=== PATIENT | female | born 1975 | race Caucasian/White ===

== ENCOUNTER 2020-07-03 04:56 | Observation (INO) | payer OTHER ==
--- NOTE | 2020-07-03 05:03 | ED Physician Documentation ---
PD HPI ABD PAIN - Stated complaint Stated Complaint: ABX PX - History obtained from History obtained from: Patient - History of Present Illness Timing - onset: How many hours ago (1) Timing - duration: Hours (1) Timing - details: Abrupt onset, Still present Quality: Cramping, Aching, Pain Location: RUQ, Epigastric Radiation: Upper back. No: Chest Improved by: Vomiting Worsened by: No: Palpation Associated symptoms: Nausea, Vomiting. No: Fever, Diarrhea, Constipation, Dysuria Similar symptoms before: Diagnosis (had a SBO 2007 that required surgery with resection 3 ft small intestine. 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 denies: Constipation, Diarrhea : denies: Dysuria Musculoskeletal: denies: Back pain Neurologic: denies: Near syncope PD PAST MEDICAL HISTORY - Past Medical History Cardiovascular: None Respiratory: None Neuro: None Endocrine/Autoimmune: None - Past Surgical History General: Other (partial small bowel resection due to SBO 2007) - Present Medications Home Medications: Ambulatory Orders Medication Instructions Recorded Confirmed No Known Home Medications 07/03/20 07/03/20 - Allergies Allergies/Adverse Reactions: Allergies Allergy/AdvReac Type Severity Reaction Status Date / Time No Known Drug Allergies Allergy Verified 07/03/20 05:08 - Living Situation Living Situation: reports: With family Living Arrangement: reports: At home PD ED PE NORMAL - Vitals Vital signs reviewed: Yes - General General: Alert and oriented X 3, Well developed/nourished, Other (appears in pain rhythmically, not continual) - HEENT HEENT: Pharynx benign - Neck Neck: Supple, no meningeal sign, No adenopathy - Cardiac Cardiac: RRR, No murmur - Respiratory Respiratory: Clear bilaterally - Abdomen Abdomen: Soft, Non distended, No organomegaly, Other (tender in upper ab d/epigastric area and some to RUQ. No percussion nor rebound tenderness. ) - Female Female : Deferred - Rectal Rectal: Deferred - Back Back: No CVA TTP - Derm Derm: Normal color, Warm and dry - Extremities Extremities: No edema, No calf tenderness / cord - Neuro Neuro: Alert and oriented X 3, No motor deficit, Normal speech Eye Opening: Spontaneous Motor: Obeys Commands Verbal: Oriented GCS Score: 15 Results - Vitals Vitals: Vital Signs - 24 hr 07/03/20 07/03/20 05:05 05:08 Temperature 36.4 C L 36.4 C L Heart Rate 95 95 Respiratory 18 18 Rate Blood Pressure 153/101 H 153/101 H O2 Saturation 100 100 Oxygen O2 Source Room air - Labs Labs: Laboratory Tests 07/03/20 07/03/20 07/03/20 05:09 05:22 05:22 WBC 11.4 H RBC 4.57 Hgb 15.0 Hct 42.5 MCV 93.0 MCH 32.8 H MCHC 35.3 RDW 11.9 L Plt Count 333 MPV 9.0 Neut # (Auto) 7.7 H Lymph # (Auto) 2.7 [place] # (Auto) 0.7 Eos # (Auto) 0.2 Baso # (Auto) 0.1 Absolute Nucleated RBC 0.00 Nucleated RBC % 0.0 Sodium 135 Potassium 3.7 Chloride 103 Carbon Dioxide 22 Anion Gap 10.0 BUN 15 Creatinine 0.7 Estimated GFR (MDRD) 91 Glucose 108 H Calcium 9.2 Total Bilirubin 0.5 AST 24 ALT 29 Alkaline Phosphatase 40 L Total Protein 7.5 Albumin 4.4 Globulin 3.1 Albumin/Globulin Ratio 1.4 Lipase 30 Urine Color YELLOW Urine Clarity CLEAR Urine pH 5.0 Ur Specific [place] >=1.030 H Urine Protein NEGATIVE Urine Glucose (UA) NEGATIVE Urine Ketones TRACE Urine Occult Blood LARGE H Urine Nitrite NEGATIVE Urine Bilirubin NEGATIVE Urine Urobilinogen 0.2 (NORMAL) Ur Leukocyte Esterase NEGATIVE Urine RBC 11-25 H Urine WBC 0-3 Ur Squamous Epith Cells FEW Squamous Urine Bacteria Few Ur Microscopic Review INDICATED Urine Culture Comments NOT INDICATED Urine HCG, Qual NEGATIVE - Rads (name of study) abd CT Radiology: Prelim report reviewed (Dilated mid small bowel up to 6 cm with contrast above consistent with partial small bowel obstruction), See rad report PD MEDICAL DECISION MAKING - ED course Complexity details: reviewed results (The radiology report is consistent with the partial small bowel obstruction in the mid small bowel. No other acute process.), considered differential (consider SBO/adhesions versus gallbladder or pancreatic process, given the upper abd location. ), d/w patient, d/w account consultant (Talked with Dr. Campos on-call for general surgery. She is close to the hospital and will actually just come to the ER to see the patient.) Departure - Departure Disposition: ED Place in Observation Clinical Impression: Acute upper abdominal pain, Small bowel obstruction Condition: Stable Record reviewed to determine appropriate education?: Yes
[2020-07-03] MEDS ORDERED: SODIUM CHLORIDE 0.9% 1,000 ML IV STA (05:12)
[2020-07-03] MEDS ORDERED: KETOROLAC 15 MG/ML VIAL IVP STA (05:12)
[2020-07-03] MEDS ORDERED: HYDROmorphone 1 MG/ML CARPUJECT IVP STA ×2 (05:12→08:53)
[2020-07-03] MEDS ORDERED: ONDANSETRON 4 MG/2 ML VIAL IVP STA (05:12)
[2020-07-03 05:22] LABS: BILIRUBIN,URINE NEGATIVE (NEGATIVE); GLUCOSE, URINE (UA) NEGATIVE (NEGATIVE); KETONES,URINE (UA) TRACE mg/dL (NEGATIVE); LEUKOCYTE ESTERASE, URINE NEGATIVE (NEGATIVE); NITRITE,URINE NEGATIVE (NEGATIVE); OCCULT BLOOD,URINE LARGE (NEGATIVE); PROTEIN,URINE NEGATIVE (NEGATIVE); UROBILINOGEN,URINE 0.2 (NORMAL) E.U./dL (NORMAL)
[2020-07-03] MEDS ORDERED: IOVERSOL 320 100 ML VIAL IVP ONE ×2 (05:24→06:31)
[2020-07-03] MEDS ORDERED: IOVERSOL 320 50 ML VIAL ONE (05:25)
[2020-07-03 05:29] LABS: BASOPHILS # (AUTO) 0.1 10^3/uL (0.0-0.1); BASOPHILS % (AUTO) 0.5 %; EOSINOPHILS # (AUTO) 0.2 10^3/uL (0.0-0.7); EOSINOPHILS % (AUTO) 1.8 %; LYMPHOCYTES # (AUTO) 2.7 10^3/uL (1.5-3.5); LYMPHOCYTES % (AUTO) 23.3 %; MEAN CORPUSCULAR HEMOGLOBIN 32.8 pg (27.0-31.0); MEAN CORPUSCULAR HGB CONC 35.3 g/dL (32.0-36.0); MONOCYTES # (AUTO) 0.7 10^3/uL (0.0-1.0); MONOCYTES % (AUTO) 6.5 %; NEUTROPHILS # (AUTO) 7.7 10^3/uL (1.5-6.6); NEUTROPHILS % (AUTO) 67.5 %; PLT - PLATELET COUNT 333 10^3/uL (130-450); RED BLOOD COUNT 4.57 10^6/uL (4.20-5.40); RED CELL DISTRIBUTION WIDTH 11.9 % (12.0-15.0); WHITE BLOOD COUNT 11.4 x10^3/uL (4.8-10.8)
[2020-07-03 05:31] LABS: BACTERIA,URINE Few /HPF (None Seen); CLARITY,URINE CLEAR (CLEAR); HCG UR QUAL NEGATIVE; SQUAMOUS EPITHELIAL CELL,UR FEW Squamous (<= Few)
[2020-07-03 05:41] LABS: ALBUMIN 4.4 g/dL (3.2-5.5); ALBUMIN/GLOBULIN RATIO 1.4 (1.0-2.2); BILIRUBIN,TOTAL 0.5 mg/dL (0.2-1.0); CALCIUM 9.2 mg/dL (8.5-10.3); CREATININE 0.7 mg/dL (0.4-1.0); TOTAL PROTEIN 7.5 g/dL (6.7-8.2)
[2020-07-03] MEDS ORDERED: LACTATED RINGERS 1,000 ML IV STA (08:21)
--- NOTE | 2020-07-03 08:25 | CT Report ---
PROCEDURE: Abdomen/Pelvis W INDICATIONS: Abdominal pain, acute, upper abd CONTRAST: IV CONTRAST: Optiray 320 ml: 100 PO CONTRAST: Optiray 320 ml50 TECHNIQUE: After the administration of intravenous contrast, 5 mm thick sections acquired from the diaphragms to the symphysis. 5 mm thick coronal and sagittal reformats were acquired. For radiation dose reducti on, the following was used: automated exposure control, adjustment of mA and/or kV according to estefania ent size. COMPARISON: None. FINDINGS: Image quality: Excellent. ABDOMEN: Lung bases: Lung bases are clear. Heart size is normal. Solid organs: Liver and spleen are normal in size and enhancement. Gallbladder is unremarkable ther e is mild dilatation of the extrahepatic duct down to the level of the pancreas and mild central intr ahepatic biliary ductal dilatation. There is no pancreatic head mass noted. No common duct stone iden tified. Pancreas enhances normally. Mildly dilated pancreatic duct. No adrenal nodules. Kidneys demo nstrate normal size and enhancement, without hydronephrosis. Peritoneum and bowel: There are partial colectomy clips present in the region of the hepatic flexure. There is a dilated loop of bowel containing a large amount of stool at the anastomotic site. This is either the most proximal residual colon or ileum. This results in a mild small bowel obstruction. Th ere is a large amount of fecal debris in the colon. Nodes and vessels: No retroperitoneal or mesenteric adenopathy by size criteria. Aorta and inferior vena cava are normal in size. Miscellaneous: No ventral hernias. PELVIS: Genitourinary: Bladder wall thickness is normal. Miscellaneous: No inguinal hernias or adenopathy. Cystic right adnexa. Bones: No suspicious bony lesions. No vertebral body compression fractures. IMPRESSION: 1. Remote partial right colectomy. 2. A 6 cm diameter stool-containing structure in the region of the hepatic flexure either represents constipated residual right colon or chronically dilated terminal ileum. There is a mild small bowel o bstruction proximal to this segment. 3. Mild biliary ductal dilatation and pancreatic ductal dilatation. Comment: MRCP may be helpful to evaluate for the presence or absence of a common duct stone. A preliminary report with the above findings was provided at the time of the study by [facility]. Reviewed by: Cornelius Alejandro MD on 07/03/2020 8:23 AM PDT Approved by: Cornelius Alejandro MD on 07/03/2020 8:23 AM PDT Station ID: [id number]
[2020-07-03] MEDS ORDERED: HYDROmorphone 0.5 MG/0.5 ML SYRINGE IVP PRN (09:16)
[2020-07-03] MEDS ORDERED: LORazepam 2 MG/ML VIAL IVP PRN (09:16)
[2020-07-03] MEDS ORDERED: ONDANSETRON 4 MG/2 ML VIAL IVP PRN (09:16)
[2020-07-03] MEDS ORDERED: SODIUM CHLORIDE FLUSH 0.9% 10 ML SYRINGE IVP PRN (09:16)
[2020-07-03] MEDS ORDERED: LACTATED RINGERS 1,000 ML IV SCH (10:00)
[2020-07-03] MEDS ORDERED: PANTOPRAZOLE 40 MG VIAL IVP SCH (10:00)
--- NOTE | 2020-07-03 12:18 | PHARMACY PROGRESS NOTE ---
- Best Possible Medication History Admit Date and Time: 07/03/20 0916 Processed by: Nursing Medication History completed: Yes As the person ultimately responsible for medication therapy, providers are able to order a medication from an existing home medication list in [facility] via the "Reconcile Routine" prior to Confirmation of that medication by direct support worker. Such practice is discouraged except when the physician, in their clinical judgment, deems that a medical need exists for a medication without regard to previous use.
[2020-07-03] MEDS: ACETAMINOPHEN 1,000 MG/100 ML 100 ML IV SCH ×2 (12:29→16:02)
--- NOTE | 2020-07-03 12:39 | HISTORY & PHYSICAL EXAMINATION ---
Chief Complaint - Chief Complaint Chief Complaint: Abdominal pain with nausea Abdominal Pain HPI - Admitted From Admitted from: ED - History Obtained From Records Reviewed: RN notes reviewed, Other (Physician documentation) History obtained from: Patient, Family Exam limitations: No limitations - History of Present Illness Severity at the worst: Severe Pain Quality: Sharp, Cramping Context-Pain started w/: Rest Timing: Intermittent Duration: Hours: Improved with: Nothing Worsened by: Nothing Associated symptoms: Nausea HPI Comment/Other: Geetha reports she has these symptoms about every 2 years since her last operation. Usually, she is able to drink liquids at home and the issue will resolve without treatment. This time, the symptoms were more severe and did not improve with rest. She remembers the surgeon at the last episode used something to try to prevent additional adhesions but she does not recall the name. PMH/PSH - Past Medical History Cardiovascular: positive: None Respiratory: positive: None Neuro: positive: None Endocrine/Autoimmune: positive: None GI: positive: Other Other Past Medical History: GI obstruction - Past Surgical History General: positive: Appendectomy, Bowel surgery (As a child and then again in 2011. ), Other /[employer]: positive: Oophrectomy Social & Family Hx - Living Situation Living Arrangement: At home Living Situation: With family - Social History Does the pt smoke?: No Smoking Status: Never smoker Does the pt drink ETOH?: Yes ETOH Use: Wine Substance Use and Type: Marijuana Meds/Allgy - Home Medications Home Medications: Ambulatory Orders Medication Instructions Recorded Confirmed No Known Home Medications 07/03/20 07/03/20 - Allergies Allergies/Adverse Reactions: Allergies Allergy/AdvReac Type Severity Reaction Status Date / Time No Known Drug Allergies Allergy Verified 07/03/20 05:08 Review of Systems - Gastrointestinal Gastrointestinal: reports: Abdominal pain, Nausea - All Other Systems All Other Systems: reports: Reviewed and negative Exam - Vital Signs Reviewed Vital Signs: Yes Vital Signs: Vital Signs x48h Temp Pulse Pulse Resp BP BP Pulse Ox 07/03/20 09:47 36.6 C 67 17 127/87 H 98 07/03/20 09:11 78 18 133/84 H 97 07/03/20 07:33 79 18 127/88 H 100 07/03/20 05:08 36.4 C L 95 18 153/101 H 100 07/03/20 05:05 36.4 C L 95 18 153/101 H 100 - Physical Exam General Appearance: positive: Moderate distress Eyes Bilateral: positive: Normal inspection, PERRL, EOMI ENT: positive: ENT inspection nml, Pharynx nml, No signs of dehydration Neck: positive: Nml inspection, Thyroid nml, No JVD, Trachea midline. negative: Lymphadenopathy (R), Lymphadenopathy (L) Respiratory: positive: Chest non-tender, No respiratory distress, Breath sounds nml Cardiovascular: positive: Regular rate & rhythm, No murmur Peripheral Pulses: positive: 1+ Abdomen: positive: No distention, Tenderness, Other (globally tender to palpation, healed midline and transverse incisions without defect. Slightly more tender directly under the incision.). negative: Mass Back: positive: Nml inspection. negative: CVA tenderness (R), CVA tenderness (L) Skin: positive: Color nml Extremities: positive: Full ROM Neurologic/Psychiatric: positive: Oriented x3 Results - Lab Results Fish Bones: 07/03/20 05:22 07/03/20 05:22 Other Lab Results: Lab Results x24hrs 07/03/20 07/03/20 07/03/20 Range/Units 05:22 05:22 05:09 WBC 11.4 H (4.8-10.8) x10^3/uL RBC 4.57 (4.20-5.40) 10^6/uL Hgb 15.0 (12.0-16.0) g/dL Hct 42.5 (37.0-47.0) % MCV 93.0 (81.0-99.0) fL MCH 32.8 H (27.0-31.0) pg MCHC 35.3 (32.0-36.0) g/dL RDW 11.9 L (12.0-15.0) % Plt Count 333 (130-450) 10^3/uL MPV 9.0 (7.9-10.8) fL Neut # (Auto) 7.7 H (1.5-6.6) 10^3/uL Lymph # (Auto) 2.7 (1.5-3.5) 10^3/uL [place] # (Auto) 0.7 (0.0-1.0) 10^3/uL Eos # (Auto) 0.2 (0.0-0.7) 10^3/uL Baso # (Auto) 0.1 (0.0-0.1) 10^3/uL Absolute Nucleated RBC 0.00 x10^3/uL Nucleated RBC % 0.0 /100WBC Sodium 135 (135-145) mmol/L Potassium 3.7 (3.5-5.0) mmol/L Chloride 103 (101-111) mmol/L Carbon Dioxide 22 (21-32) mmol/L Anion Gap 10.0 (6-13) BUN 15 (6-20) mg/dL Creatinine 0.7 (0.4-1.0) mg/dL Estimated GFR (MDRD) 91 (>89) Glucose 108 H (70-100) mg/dL Calcium 9.2 (8.5-10.3) mg/dL Total Bilirubin 0.5 (0.2-1.0) mg/dL AST 24 (10-42) IU/L ALT 29 (10-60) IU/L Alkaline Phosphatase 40 L (42-121) IU/L Total Protein 7.5 (6.7-8.2) g/dL Albumin 4.4 (3.2-5.5) g/dL Globulin 3.1 (2.1-4.2) g/dL Albumin/Globulin Ratio 1.4 (1.0-2.2) Lipase 30 (22-51) U/L Urine Color YELLOW Urine Clarity CLEAR (CLEAR) Urine pH 5.0 (5.0-7.5) PH Ur Specific [place] >=1.030 H (1.002-1.030) Urine Protein NEGATIVE (NEGATIVE) mg/dL Urine Glucose (UA) NEGATIVE (NEGATIVE) mg/dL Urine Ketones TRACE (NEGATIVE) mg/dL Urine Occult Blood LARGE H (NEGATIVE) Urine Nitrite NEGATIVE (NEGATIVE) Urine Bilirubin NEGATIVE (NEGATIVE) Urine Urobilinogen 0.2 (NORMAL) (NORMAL) E.U./dL Ur Leukocyte Esterase NEGATIVE (NEGATIVE) Urine RBC 11-25 H (0-5) /HPF Urine WBC 0-3 (0-5) /HPF Ur Squamous Epith Cells FEW Squamous (<= Few) Urine Bacteria Few (None Seen) /HPF Ur Microscopic Review INDICATED Urine Culture Comments NOT INDICATED Urine HCG, Qual NEGATIVE - Diagnostic Imaging Results Diagnostic Imaging Results: positive: Final report reviewed Diagnostic Imaging Results Comments: 6cm stool filled structure at the hepatic flexure consistent with either terminal ileum or residual right colon. Mild dilation of the small bowel loops proximal to this area. Impression/Plan - Problem List Problem List: Possible partial small bowel obstruction vs obstipation. Symptoms are recurrent We discussed the possibility of surgical intervention vs watchful waiting. There is no evidence of bowel ischemia. We will start with bowel rest and consider therapeutic gastrograffin. Plan xray in the AM.
[2020-07-03] MEDS ORDERED: DIATR MEGLU/DIATRIZOATE SODIUM 120 ML BOTTLE PO ONE (12:47)
[2020-07-03] MEDS ORDERED: DIATRIZOATE MEGLU/DIATRIZO SOD 30 ML BOTTLE PO ONE (14:00)
[2020-07-03] MEDS ORDERED: SODIUM CHLORIDE FLUSH 0.9% 10 ML SYRINGE IVP SCH (17:00)
[2020-07-03 18:05] VITALS: BP 123/73
--- NOTE | 2020-07-03 18:13 | PROVIDER PROGRESS NOTE ---
Subjective - Prog Note Date Prog Note Date: 07/03/20 Prog Note Time: 18:11 - Subjective Pt reports feeling: Improved Subjective: Geetha reports feeling much better. She has had 2 bowel movements and her pain has completely resolved. She is hungry and feels comfortable going home. Her is here with her to escort her. Abdomen is soft and completely nontender now with active bowel sounds A/P: Discharge to home. Follow up as needed. Objective - Vital Signs/Intake & Output Vital Signs: Vital Signs x48h Temp Pulse Pulse Resp BP Pulse Ox 07/03/20 18:00 36.3 C L 70 18 123/73 96 07/03/20 15:21 36.6 C 67 20 100 07/03/20 13:47 36.6 C 65 20 130/71 100 Intake & Output: Intake & Output 06/30/20 07/01/20 07/02/20 07/03/20 23:59 23:59 23:59 23:59 Intake Total 2200.000 Balance 2200.000 - Lab Results Fish Bones: 07/03/20 05:22 07/03/20 05:22 Other Labs: Lab Results x24hrs 07/03/20 07/03/20 07/03/20 Range/Units 05:22 05:22 05:09 WBC 11.4 H (4.8-10.8) x10^3/uL RBC 4.57 (4.20-5.40) 10^6/uL Hgb 15.0 (12.0-16.0) g/dL Hct 42.5 (37.0-47.0) % MCV 93.0 (81.0-99.0) fL MCH 32.8 H (27.0-31.0) pg MCHC 35.3 (32.0-36.0) g/dL RDW 11.9 L (12.0-15.0) % Plt Count 333 (130-450) 10^3/uL MPV 9.0 (7.9-10.8) fL Neut # (Auto) 7.7 H (1.5-6.6) 10^3/uL Lymph # (Auto) 2.7 (1.5-3.5) 10^3/uL [place] # (Auto) 0.7 (0.0-1.0) 10^3/uL Eos # (Auto) 0.2 (0.0-0.7) 10^3/uL Baso # (Auto) 0.1 (0.0-0.1) 10^3/uL Absolute Nucleated RBC 0.00 x10^3/uL Nucleated RBC % 0.0 /100WBC Sodium 135 (135-145) mmol/L Potassium 3.7 (3.5-5.0) mmol/L Chloride 103 (101-111) mmol/L Carbon Dioxide 22 (21-32) mmol/L Anion Gap 10.0 (6-13) BUN 15 (6-20) mg/dL Creatinine 0.7 (0.4-1.0) mg/dL Estimated GFR (MDRD) 91 (>89) Glucose 108 H (70-100) mg/dL Calcium 9.2 (8.5-10.3) mg/dL Total Bilirubin 0.5 (0.2-1.0) mg/dL AST 24 (10-42) IU/L ALT 29 (10-60) IU/L Alkaline Phosphatase 40 L (42-121) IU/L Total Protein 7.5 (6.7-8.2) g/dL Albumin 4.4 (3.2-5.5) g/dL Globulin 3.1 (2.1-4.2) g/dL Albumin/Globulin Ratio 1.4 (1.0-2.2) Lipase 30 (22-51) U/L Urine Color YELLOW Urine Clarity CLEAR (CLEAR) Urine pH 5.0 (5.0-7.5) PH Ur Specific [place] >=1.030 H (1.002-1.030) Urine Protein NEGATIVE (NEGATIVE) mg/dL Urine Glucose (UA) NEGATIVE (NEGATIVE) mg/dL Urine Ketones TRACE (NEGATIVE) mg/dL Urine Occult Blood LARGE H (NEGATIVE) Urine Nitrite NEGATIVE (NEGATIVE) Urine Bilirubin NEGATIVE (NEGATIVE) Urine Urobilinogen 0.2 (NORMAL) (NORMAL) E.U./dL Ur Leukocyte Esterase NEGATIVE (NEGATIVE) Urine RBC 11-25 H (0-5) /HPF Urine WBC 0-3 (0-5) /HPF Ur Squamous Epith Cells FEW Squamous (<= Few) Urine Bacteria Few (None Seen) /HPF Ur Microscopic Review INDICATED Urine Culture Comments NOT INDICATED Urine HCG, Qual NEGATIVE
--- NOTE | 2020-07-03 18:14 | DISCHARGE SUMMARY ---
Discharge Summary Admit Date: 07/03/20 Discharge Date: 07/03/20 Discharging Provider: Yanira Primary Care Provider: [facility] Code Status: Attempt Resuscitation Condition at Discharge: Good Discharge Disposition: 01 Home, Self Care - DIAGNOSES Admission Diagnoses: Small bowel obstruction Discharge Diagnoses with Status of Each Condition: Resolved - HPI History of Present Illness: Acute onset of abdominal pain with nausea and vomiting - HOSPITAL COURSE Hospital Course: Geetha was admitted for hydration and supportive care. She began to improve immediately and had 2 large bowel movements. Her pain resolved and she is ready for discharge. - ALLERGIES Allergies/Adverse Reactions: Allergies Allergy/AdvReac Type Severity Reaction Status Date / Time No Known Drug Allergies Allergy Verified 07/03/20 05:08 - MEDICATIONS Home Medications: Ambulatory Orders Medication Instructions Recorded Confirmed No Known Home Medications 07/03/20 07/03/20 - PHYSICAL EXAM AT DISCHARGE General Appearance: positive: No acute distress, Alert, Mild distress Eyes Bilateral: positive: Normal inspection, PERRL, EOMI ENT: positive: ENT inspection nml, Pharynx nml, No signs of dehydration Neck: positive: Nml inspection, Thyroid nml, No JVD, Trachea midline Respiratory: positive: Chest non-tender, No respiratory distress, Breath sounds nml Cardiovascular: positive: Regular rate & rhythm Peripheral Pulses: positive: 1+ Abdomen: positive: Non-tender, No organomegaly, Nml bowel sounds, No distention Skin: positive: Color nml Neurologic/Psychiatric: positive: Oriented x3 - LABS Result Diagrams: 07/03/20 05:22 07/03/20 05:22 - QUALITY (Female Hip Fx Only) Was patient sent home on osteoporosis medication?: No - FOLLOW UP Follow Up: As needed - TIME SPENT Time Spent in Discharge (Minutes): 20
--- NOTE | 2020-07-03 18:55 | Discharge Plan ---
Discharge Plan Problem Reviewed?: Yes Disposition: Home, Self Care Condition: Good Diet: Regular Activity Restrictions: No Restrictions No Smoking: If you smoke, Please STOP! Call for help.
[2020-07-04] MEDS ORDERED: ENOXAPARIN 40 MG/0.4 ML SYRINGE SUBQ SCH (09:00)
== END 2020-07-03 19:08 | disposition home or self-care (01) ==
LOC: ED 04:56 → MS2 09:16
PROVIDERS: ADMIT Surgery; ATTEND Surgery
DX: K56.609 Unspecified intestinal obstruction, unspecified as to partial versus complete obstruction (principal); Z90.49 Acquired absence of other specified parts of digestive tract
CPT/HCPCS: 36415; 74177; 80053; 81001; 81025; 83690; 85025; 96365; 96375; 96376; 99284; 99285; G0378; J0131; J1170; J7120; Q9963; Q9967; 81003; 87086

== ENCOUNTER 2021-09-13 20:02 | Emergency (ER) | payer OTHER ==
[2021-09-13 20:24] LABS: BILIRUBIN,URINE NEGATIVE (NEGATIVE); GLUCOSE, URINE (UA) NEGATIVE (NEGATIVE); KETONES,URINE (UA) NEGATIVE (NEGATIVE); LEUKOCYTE ESTERASE, URINE NEGATIVE (NEGATIVE); NITRITE,URINE NEGATIVE (NEGATIVE); OCCULT BLOOD,URINE NEGATIVE (NEGATIVE); PROTEIN,URINE NEGATIVE (NEGATIVE); UROBILINOGEN,URINE 0.2 (NORMAL) E.U./dL (NORMAL)
[2021-09-13 20:25] LABS: CLARITY,URINE CLEAR (CLEAR)
[2021-09-13 20:27] LABS: HCG UR QUAL NEGATIVE
[2021-09-13 20:44] LABS: BASOPHILS # (AUTO) 0.1 10^3/uL (0.0-0.1); BASOPHILS % (AUTO) 0.5 %; EOSINOPHILS # (AUTO) 0.1 10^3/uL (0.0-0.7); EOSINOPHILS % (AUTO) 1.2 %; HGB - HEMOGLOBIN 14.9 g/dL (12.0-16.0); LYMPHOCYTES # (AUTO) 2.7 10^3/uL (1.5-3.5); LYMPHOCYTES % (AUTO) 28.4 %; MEAN CORPUSCULAR HEMOGLOBIN 31.6 pg (27.0-31.0); MEAN CORPUSCULAR HGB CONC 35.5 g/dL (32.0-36.0); MEAN CORPUSCULAR VOLUME 89.2 fL (81.0-99.0); MEAN PLATELET VOLUME 9.8 fL (7.9-10.8); MONOCYTES # (AUTO) 0.5 10^3/uL (0.0-1.0); MONOCYTES % (AUTO) 5.4 %; NEUTROPHILS # (AUTO) 6.1 10^3/uL (1.5-6.6); NEUTROPHILS % (AUTO) 64.3 %; PLT - PLATELET COUNT 298 10^3/uL (130-450); RED BLOOD COUNT 4.71 10^6/uL (4.20-5.40); RED CELL DISTRIBUTION WIDTH 11.6 % (12.0-15.0); WHITE BLOOD COUNT 9.5 x10^3/uL (4.8-10.8)
[2021-09-13 20:58] LABS: ALBUMIN 4.4 g/dL (3.2-5.5); ALBUMIN/GLOBULIN RATIO 1.5 (1.0-2.2); BILIRUBIN,TOTAL 0.8 mg/dL (0.2-1.0); CALCIUM 9.4 mg/dL (8.5-10.3); CREATININE 0.7 mg/dL (0.4-1.0); POTASSIUM 3.6 mmol/L (3.5-5.0); TOTAL PROTEIN 7.4 g/dL (6.7-8.2)
[2021-09-13] MEDS ORDERED: MORPHINE 2 MG/ML CARPUJECT IVP STA ×2 (20:59→21:45)
--- NOTE | 2021-09-13 21:01 | ED Physician Documentation ---
PD HPI ABD PAIN - Stated complaint Stated Complaint: ABD PX - Chief complaint Chief Complaint: Abd Pain - History obtained from History obtained from: Patient - Additional information Additional information: Patient is a 46-year-old female presenting to the emergency department with abdominal pain. Endorses for cramping left-sided abdominal pain that has been ongoing since this afternoon. Past medical significant for small bowel obstruction requiring resection in 2007. Patient also endorses for distant pediatric surgery for "twisted bowel". Endorses for nausea without vomiting. Reports has been 2 days since she last moved her bowels. Does state that it is not infrequent for her to go several days between bowel movements. Denies for fever, chills, chest pain, shortness of breath. Review of Systems Ten Systems: 10 systems reviewed and negative Constitutional: denies: Fever, Chills Eyes: denies: Loss of vision Ears: denies: Loss of hearing Nose: denies: Rhinorrhea / runny nose Throat: denies: Dental pain / toothache Cardiac: denies: Chest pain / pressure, Palpitations Respiratory: denies: Dyspnea, Cough GI: reports: Abdominal Pain, Nausea, Constipation. denies: Vomiting, Diarrhea : denies: Dysuria Skin: denies: Rash Musculoskeletal: denies: Neck pain PD PAST MEDICAL HISTORY - Past Medical History Cardiovascular: None Respiratory: None Neuro: None Endocrine/Autoimmune: None GI: None, Other : None Psych: None Musculoskeletal: None Derm: None - Past Surgical History Past Surgical History: Yes General: Appendectomy, Bowel surgery, Other /[employer]: Oophrectomy - Present Medications Home Medications: Ambulatory Orders Medication Instructions Recorded Confirmed Docusate Sodium [Dulcolax Stool 100 mg PO DAILY #30 cap 09/13/21 Softener] polyethylene glycoL 3350 [Miralax] 17 gm PO DAILY PRN #1 bottle 09/13/21 - Allergies Allergies/Adverse Reactions: Allergies Allergy/AdvReac Type Severity Reaction Status Date / Time No Known Drug Allergies Allergy Verified 09/13/21 20:11 - Social History Does the pt smoke?: No Smoking Status: Never smoker Does the pt drink ETOH?: Yes - Immunizations Immunizations are current?: Yes PD ED PE NORMAL - HEENT HEENT: Atraumatic, PERRL, Moist mucous membranes - Neck Neck: Supple, no meningeal sign - Cardiac Cardiac: RRR, No murmur, No gallop - Respiratory Respiratory: No respiratory distress, Clear bilaterally - Female Female : Deferred - Rectal Rectal: Deferred - Derm Derm: Normal color - Extremities Extremities: No deformity - Neuro Neuro: Alert and oriented X 3, hair dryer 2-12 intact, No motor deficit, No sensory deficit, Normal speech PD ED PE EXPANDED - General General: In Pain, In distress. No: No acute distress - Abdomen Abdomen: Normal Bowel sounds. No: Tender to palpation, Rebound, Guarding, Mass, Hepatomegaly, Splenomegaly, Pulsatile, Bruising Results - Vitals Vitals: Vital Signs - 24 hr 09/13/21 09/13/21 20:08 22:08 Temperature 36.6 C Heart Rate 68 84 Respiratory 22 20 Rate Blood Pressure 180/109 H 156/96 H O2 Saturation 99 95 Oxygen O2 Source Room air - Labs Labs: Laboratory Tests 09/13/21 09/13/21 09/13/21 20:13 20:13 20:32 WBC 9.5 RBC 4.71 Hgb 14.9 Hct 42.0 MCV 89.2 MCH 31.6 H MCHC 35.5 RDW 11.6 L Plt Count 298 MPV 9.8 Neut # (Auto) 6.1 Lymph # (Auto) 2.7 [place] # (Auto) 0.5 Eos # (Auto) 0.1 Baso # (Auto) 0.1 Absolute Nucleated RBC 0.00 Nucleated RBC % 0.0 Sodium Potassium Chloride Carbon Dioxide Anion Gap BUN Creatinine Estimated GFR (MDRD) Glucose Calcium Total Bilirubin AST ALT Alkaline Phosphatase Total Protein Albumin Globulin Albumin/Globulin Ratio Lipase Urine Color YELLOW Urine Clarity CLEAR Urine pH 7.0 Ur Specific Electra 1.020 Urine Protein NEGATIVE Urine Glucose (UA) NEGATIVE Urine Ketones NEGATIVE Urine Occult Blood NEGATIVE Urine Nitrite NEGATIVE Urine Bilirubin NEGATIVE Urine Urobilinogen 0.2 (NORMAL) Ur Leukocyte Esterase NEGATIVE Ur Microscopic Review NOT INDICATED Urine Culture Comments NOT INDICATED Urine HCG, Qual NEGATIVE 09/13/21 20:32 WBC RBC Hgb Hct MCV MCH MCHC RDW Plt Count MPV Neut # (Auto) Lymph # (Auto) [place] # (Auto) Eos # (Auto) Baso # (Auto) Absolute Nucleated RBC Nucleated RBC % Sodium 138 Potassium 3.6 Chloride 106 Carbon Dioxide 21 Anion Gap 11.0 BUN 15 Creatinine 0.7 Estimated GFR (MDRD) 91 Glucose 105 H Calcium 9.4 Total Bilirubin 0.8 AST 27 ALT 38 Alkaline Phosphatase 49 Total Protein 7.4 Albumin 4.4 Globulin 3.0 Albumin/Globulin Ratio 1.5 Lipase 31 Urine Color Urine Clarity Urine pH Ur Specific Electra Urine Protein Urine Glucose (UA) Urine Ketones Urine Occult Blood Urine Nitrite Urine Bilirubin Urine Urobilinogen Ur Leukocyte Esterase Ur Microscopic Review Urine Culture Comments Urine HCG, Qual PD MEDICAL DECISION MAKING - ED course Complexity details: reviewed old records, reviewed results, d/w patient ED course: Is a 46-year-old female with past medical significant for small bowel obstructi on requiring partial resection that occurred in [facility] in 2007 presenting to the emergency department 1 day history abdominal pain. Patient afebrile, hemodynamically stable on arrival to the emergency department. Did have some significant distress secondary to pain was given medication for pain control and anxiety in the emergency department. Was given IV hydration. Comprehensive labs obtained were within normal limits are generally nonactionable. CT of the abdomen pelvis was also negative. Chart review does demonstrate a similar presentation for possible small bowel obstruction in June 2020. At that time patient's symptoms resolved after notable large BM and she did not require an extensive stay in the Hospital. She was given magnesium citrate in the emergency department and while she did not move her bowels she reported that her pain was significantly improved. At this time per her request I will discharge her with a bowel regimen. She was encouraged to carefully follow-up with primary care or return to the emergency department for new or worsening symptoms. Departure - Departure Disposition: 01 Home, Self Care Clinical Impression: Abdominal pain, Constipation, Ovarian cyst Instructions: Abdominal Pain, ED Constipation Prescriptions: Docusate Sodium [Dulcolax Stool Softener] 100 mg PO DAILY #30 cap polyethylene glycoL 3350 [Miralax] 17 gm PO DAILY PRN #1 bottle PRN Reason: Constipation Comments: [facility] Of the testing performed in the emergency department today including your blood work and the CT scan of your abdomen and pelvis were all very reassuring. I would like you to begin taking some medications to help as a bowel regimen. I recommend increasing your intake in fluid, fiber full fluids and getting a modest amount of physical activity daily. Please follow-up with your primary care doctor soon as you are able. If it anytime you have any new or worsening symptoms please not hesitate to return to the emergency department.
[2021-09-13] MEDS ORDERED: ONDANSETRON 4 MG/2 ML VIAL IVP STA (21:04)
[2021-09-13] MEDS ORDERED: SODIUM CHLORIDE 0.9% 1,000 ML IV STA (21:04)
[2021-09-13] MEDS ORDERED: iohexoL-300 100 ML VIAL ONE (21:18)
[2021-09-13] MEDS ORDERED: iohexoL-300 100 ML VIAL IVP ONE (21:44)
[2021-09-13] MEDS ORDERED: LORazepam 2 MG/ML VIAL IVP STA (21:45)
--- NOTE | 2021-09-13 22:01 | CT Report ---
PROCEDURE: Abdomen/Pelvis W INDICATIONS: Abd pain, h/o SBO CONTRAST: IV CONTRAST: Isovue 300 ml: 100 PO CONTRAST: *NO PO CONTRAST TECHNIQUE: After the administration of weight appropriate dose of intravenous contrast, 5 mm thick sections acqu ired from the diaphragms to the symphysis. 5 mm thick coronal and sagittal reformats were acquired. For radiation dose reduction, the following was used: automated exposure control, adjustment of mA and/or kV according to patient size. COMPARISON: 07/03/2020 FINDINGS: Image quality: Excellent. ABDOMEN: Lung bases: Lung bases are clear. Heart size is normal. Solid organs: Liver and spleen are normal in size and enhancement. A few subcentimeter hepatic hypo density in the left hepatic lobe are too small to characterize and likely represent cysts versus bill ngiomas. These are not significantly changed. Gallbladder is mildly decompressed but otherwise unrema rkable. Biliary system demonstrate persistent dilatation of the common bile duct as well as minimal prominence of the main pancreatic duct. Pancreas enhances normally. No adrenal nodules. Kidneys de monstrate normal size and enhancement, without hydronephrosis. Bilateral ureters are normal in cours e and caliber. Peritoneum and bowel: Stable postsurgical changes of prior right hemicolectomy. Redemonstration of p atulousness near the surgical anastomotic suture line. No evidence for obstruction proximally. Bowel loops otherwise demonstrate normal wall thickness and caliber. No free fluid or air. Nodes and vessels: No retroperitoneal or mesenteric adenopathy by size criteria. Aorta and inferior vena cava are normal in size. Miscellaneous: No ventral hernias. PELVIS: Genitourinary: Bladder wall thickness is normal. There are bilateral adnexal cystic lesions likely representing bilateral ovarian cysts. Miscellaneous: No inguinal hernias or adenopathy. Bones: No suspicious bony lesions. No acute vertebral body compression fractures. IMPRESSION: 1. Stable postsurgical changes of remote right hemicolectomy without evidence for obstruction proxima lly. 2. Redemonstration of mild extrahepatic biliary ductal dilatation of the common bile duct as well as the main pancreatic duct. No obstructing mass or stone visualized. Consider further evaluation with n onemergent abdominal MRI/MRCP if not already accomplished. 3. Bilateral adnexal cystic lesions likely representing cysts. Consider further evaluation with pelvi c ultrasound if clinically indicated. Otherwise, no acute abnormalities identified. Reviewed by: Reid Stevenson MD on 09/13/2021 10:00 PM PST Approved by: Reid Stevenson MD on 09/13/2021 10:00 PM PST Station ID: [id number]
[2021-09-13] MEDS ORDERED: MAGNESIUM CITRATE 296 ML BOTTLE PO STA (22:21)
[2021-09-13 23:47] VITALS: BP 118/88
== END 2021-09-13 23:46 | disposition home or self-care (01) ==
LOC: ED 20:02
DX: R10.9 Unspecified abdominal pain (principal); K59.00 Constipation, unspecified; R11.0 Nausea; N83.202 Unspecified ovarian cyst, left side; N83.201 Unspecified ovarian cyst, right side; F41.9 Anxiety disorder, unspecified; Z87.19 Personal history of other diseases of the digestive system; Z90.49 Acquired absence of other specified parts of digestive tract
CPT/HCPCS: 36415; 74177; 80053; 81003; 81025; 83690; 85025; 96374; 96375; 96376; 99284; A9270; J2060; Q9967; 81001; 87086